=== PATIENT | female | born 1935 | race Caucasian/White ===

== ENCOUNTER 2018-04-12 21:38 | Emergency (ER) | payer OTHER ==
[~2018-04-12] VITALS: Ht 147.3 cm; Wt 54.4 kg
[2018-04-12 21:51] VITALS: Ht 147.3 cm; Wt 54.4 kg
[2018-04-12 22:34] LABS: BASOPHIL % 0.6 % (0-2); PLATELET COUNT 191 x10^3mcL (130-400); RED CELL DISTRIBUTION WIDTH 12.6 % (11.5-14.5)
[2018-04-12 22:44] LABS: CALCIUM 8.7 mg/dL (8.5-10.1); CARBON DIOXIDE 23.7 mmol/L (21-32); CHLORIDE SERUM 106 mmol/L (98-107); CREATININE SERUM 1.2 mg/dL (0.6-1.0); GLUCOSE SERUM 115 mg/dL (74-106); POTASSIUM SERUM 3.9 mmol/L (3.5-5.1); SODIUM SERUM 143 mmol/L (136-145)
[2018-04-12 22:48] LABS: ALBUMIN 3.9 g/dL (3.4-5.0); ALKALINE PHOSPHATASE 81 U/L (46-116); ALT/SGPT 21 U/L (14-59); AST/SGOT 21 U/L (15-37); BILIRUBIN TOTAL 0.55 mg/dL (0.20-1.00)
[2018-04-12 22:57] LABS: TOTAL PROTEIN, SERUM 8.9 g/dL (6.4-8.2)
[2018-04-13 00:22] LABS: UA SPECIFIC GRAVITY >=1.030 (1.005-1.035); microscopic required? YES; urine erythrocyte 1+ (NEGATIVE)
[2018-04-13 00:51] VITALS: BP 147/77
== END 2018-04-13 00:51 | disposition home or self-care (01) ==
LOC: ED 21:38
PROVIDERS: Emergency Medicine
DX: N39.0 Urinary tract infection, site not specified (principal); I10 Essential (primary) hypertension
CPT/HCPCS: J2270; J2405; J7030

== ENCOUNTER 2018-04-15 18:29 | Emergency (ER) | payer OTHER ==
[~2018-04-15] VITALS: Ht 137.2 cm; Wt 54.0 kg
[2018-04-15 18:41] VITALS: Ht 137.2 cm; Wt 54.0 kg
[2018-04-15 20:11] VITALS: BP 159/76
== END 2018-04-15 20:11 | disposition home or self-care (01) ==
LOC: ED 18:29
DX: M54.9 Dorsalgia, unspecified (principal); I10 Essential (primary) hypertension
CPT/HCPCS: 72072; J3010